=== PATIENT | female | born 1990 | race Caucasian/White ===

== ENCOUNTER 2022-10-04 09:40 | Emergency (ER) | payer BC ==
[2022-10-04] MEDS ORDERED: FAMOTIDINE 20 MG/2 ML VIAL IV ONE (09:54)
[2022-10-04] MEDS ORDERED: NA CHLORIDE 0.9% 1,000 ML ONE (09:54)
[2022-10-04] MEDS ORDERED: DIPHENHYDRAMINE 50 MG/ML VIAL ONE (09:54)
[2022-10-04] MEDS ORDERED: METHYLPREDNISOLONE 125 MG INJ ONE (09:54)
--- NOTE | 2022-10-04 10:40 | EDPHYS ---
Physician Documentation [facility] Name: Magdalena Wong Age: 32 yrs Sex: Female : 1990 Arrival Date: 10/04/2022 Time: 09:40 Bed 13 Private MD: ED Physician Jas Garcia HPI: 10/04 10:21 This 32 yrs old Female presents to ER via Unassigned with complaints of Allergic kb Reaction. 10:21 The patient presents with shortness of breath. Onset: The symptoms/episode kb began/occurred 15 minute(s) ago. Associated signs and symptoms: Pertinent positives: shortness of breath, Pertinent negatives: rash, swelling. Possible causes: bees. At home the patient or guardian has treated the symptoms with nothing. Severity of symptoms: At their worst the symptoms were moderate in the emergency department the symptoms are unchanged. The patient has experienced similar episodes in the past. The patient has not recently seen a physician. 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 Reports shortness of breath. 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 - Social history:: Smoking status: Patient denies any tobacco usage or history of. ROS: 10:17 Constitutional: Negative for fever, chills, and weight loss. kb 10:19 Respiratory: Positive for shortness of breath. kb 10:19 All other systems are negative. Exam: 10:19 Constitutional: This is a well developed, well nourished patient who is awake, alert, kb and in no acute distress. Head/Face: Normocephalic, atraumatic. ENT: Moist Mucous membranes Cardiovascular: Regular rate and rhythm with a normal S1 and S2. No gallops, murmurs, or rubs. No pulse deficits. Respiratory: Respirations even and unlabored. No increased work of breathing. Talking in full sentences Skin: Warm, dry with normal turgor. Normal color. MS/ Extremity: Pulses equal, no cyanosis. Neurovascular intact. Full, normal range of motion. Neuro: Awake and alert, GCS 15, oriented to person, place, time, and situation. Moves all extremities. Normal gait. Vital Signs: 09:52 BP 168 / 87; Pulse 95; Resp 20; Pulse Ox 97% on R/A; iw 10:44 BP 146 / 72; Pulse 84; Resp 18; Pulse Ox 99% on R/A; ko1 MDM: 09:43 Patient medically screened. kb 10:20 Differential diagnosis: anaphylaxis, angioedema, urticaria. Data reviewed: vital signs, kb nurses notes. Counseling: I had a detailed discussion with the patient and/or guardian regarding: the historical points, exam findings, and any diagnostic results supporting the discharge/admit diagnosis, the need for outpatient follow up, a family practitioner, to return to the emergency department if symptoms worsen or persist or if there are any questions or concerns that arise at home. Response to treatment: the patient's symptoms have resolved after treatment, the patient is not short of breath. 10/04 09:44 Order name: IV Start; Complete Time: :44 kb Administered Medications: 09:51 Drug: Famotidine IVP 20 mg Route: IVP; Site: left antecubital; iw 10:45 Follow up: Response: No adverse reaction ko1 09:52 Drug: diphenhydrAMINE IVP 25 mg Route: IVP; Site: left antecubital; iw 10:45 Follow up: Response: No adverse reaction; Marked relief of symptoms ko1 09:52 Drug: MethylPrednisoLONE IVP 125 mg Route: IVP; Site: left antecubital; iw 10:45 Follow up: Response: No adverse reaction; Marked relief of symptoms ko1 10:04 Drug: NS 0.9% IV 1000 ml Route: IV; Rate: 1000 ml; Site: left antecubital; iw 10:45 Follow up: IV Status: Completed infusion; IV Intake: 1000ml ko1 Disposition Summary: 10/04/22 10:39 Discharge Ordered Location: Home kb Condition: Stable kb Diagnosis - Bee allergy status kb Followup: kb - With: Emergency Department - When: As needed - Reason: Worsening of condition Followup: kb - With: Private Physician - When: 2 - 3 days - Reason: Recheck today's complaints, Continuance of care, Re-evaluation by your physician Discharge Instructions: - Discharge Summary Sheet kb - Bee, Wasp, or Hornet Sting, Adult kb - Allergies, Adult, [id number] kb Forms: - Medication Reconciliation Form kb - Thank You Letter kb - Antibiotic Education kb - Prescription Opioid Use kb Prescriptions: - Pepcid 20 mg Oral Tablet - take 1 tablet by ORAL route every 12 hours for 5 days; 10 tablet; Refills: 0, kb Product Selection Permitted - Prednisone 20 mg Oral Tablet - take 1 tablet by ORAL route once daily for 5 days; 5 tablet; Refills: 0, kb Product Selection Permitted Signatures: Nelly Tripp FNP-C FNP-Ckb Williams, Irene, RN RN iw Julieta Rinaldi RN RN ko1
--- NOTE | 2022-10-04 10:40 | ER ---
Nurse's Notes [facility] Name: Magdalena Wong Age: 32 yrs Sex: Female : 1990 Arrival Date: 10/04/2022 Time: 09:40 Bed 13 Private MD: Diagnosis: Bee allergy status Presentation: 10/04 09:52 Chief complaint: Patient states: bee sting X 20-30 min [employer]. iw 09:52 Acuity: URBANO 2 iw 09:52 Method Of Arrival: Wheelchair iw 09:52 Coronavirus screen: At this time, the client does not indicate any symptoms associated iw with coronavirus-19. Ebola Screen: Patient negative for fever greater than or equal to 101.5 degrees Fahrenheit, and additional compatible Ebola Virus Disease symptoms Patient denies exposure to infectious person. Patient denies travel to an Ebola-affected area in the 21 days before illness onset. No symptoms or risks identified at this time. Onset: The symptoms/episode began/occurred just prior to arrival. Anaphylaxis evaluation, chest pain. Initial Sepsis Screen: Does the patient meet any 2 criteria? No. Patient's initial sepsis screen is negative. Does the patient have a suspected source of infection? No. Patient's initial sepsis screen is negative. Risk Assessment: Do you want to hurt yourself or someone else? Patient reports no desire to harm self or others. Onset of symptoms was October 05, 2022. 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 - Social history:: Smoking status: Patient denies any tobacco usage or history of. Screenin:26 [facility] ED Fall Risk Assessment (Adult) History of falling in the last 3 months, ko1 including since admission No falls in past 3 months (0 pts) Confusion or Disorientation No (0 pts) Intoxicated or Sedated No (0 pts) Impaired Gait No (0 pts) Mobility Assist Device Used No (0 pt) Altered Elimination No (0 pt) Score/Fall Risk Level 0 - 2 = Low Risk Oriented to surroundings, Maintained a safe environment, Educated pt \T\ family on fall prevention, incl call for assistance when getting out of bed, Assessed \T\ reinforced patient's understanding of fall precautions, Provided non-skid footwear, Hourly rounding (assess needs \T\ fall precautionary measures) done, Used ambulatory aids as needed (educated on \T\ assisted with), Used gait belt as appropriate. Abuse screen: Denies threats or abuse. Denies injuries from another. Nutritional screening: No deficits noted. Tuberculosis screening: No symptoms or risk factors identified. Assessment: 10:00 General: Appears distressed, uncomfortable, Behavior is calm, cooperative, appropriate ko1 for age. Pain: Denies pain. Neuro: No deficits noted. Cardiovascular: No deficits noted. Respiratory: Airway is patent Respiratory effort is even, Breath sounds are clear bilaterally. GI: No deficits noted. : No deficits noted. EENT: No deficits noted. Derm: No deficits noted. Musculoskeletal: No deficits noted. Vital Signs: 09:52 BP 168 / 87; Pulse 95; Resp 20; Pulse Ox 97% on R/A; iw 10:44 BP 146 / 72; Pulse 84; Resp 18; Pulse Ox 99% on R/A; ko1 ED Course: 09:30 Inserted saline lock: 20 gauge in left antecubital area, using aseptic technique. iw 09:43 Patient arrived in ED. am2 09:43 Nelly Tripp FNP-C [facility]. kb 09:43 Jas Garcia MD is Attending Physician. kb 09:43 Sylwia Garcia, EUGENIA is Primary Nurse. iw 09:52 Triage completed. iw 09:52 Arm band placed on. iw 10:26 No provider procedures requiring assistance completed. ko1 10:26 Patient has correct armband on for positive identification. Bed in low position. Call ko1 light in reach. Side rails up X 1. Pulse ox on. NIBP on. Door closed. Noise minimized. Lights dimmed. Warm blanket given. 10:44 IV discontinued, intact, bleeding controlled, No redness/swelling at site. Pressure ko1 dressing applied. Administered Medications: 09:51 Drug: Famotidine IVP 20 mg Route: IVP; Site: left antecubital; iw 10:45 Follow up: Response: No adverse reaction ko1 09:52 Drug: diphenhydrAMINE IVP 25 mg Route: IVP; Site: left antecubital; iw 10:45 Follow up: Response: No adverse reaction; Marked relief of symptoms ko1 09:52 Drug: MethylPrednisoLONE IVP 125 mg Route: IVP; Site: left antecubital; iw 10:45 Follow up: Response: No adverse reaction; Marked relief of symptoms ko1 10:04 Drug: NS 0.9% IV 1000 ml Route: IV; Rate: 1000 ml; Site: left antecubital; iw 10:45 Follow up: IV Status: Completed infusion; IV Intake: 1000ml ko1 Medication: 10:26 VIS not applicable for this client. ko1 Intake: 10:45 IV: 1000ml; Total: 1000ml. ko1 Outcome: 10:39 Discharge ordered by . kb 11:08 Patient left the ED. iw 11:08 Discharged to home ambulatory. ko1 11:08 Condition: stable 11:08 Discharge instructions given to patient, Instructed on discharge instructions, follow up and referral plans. medication usage, Demonstrated understanding of instructions, follow-up care, medications, Prescriptions given X 2. Signatures: Nelly Tripp, ACQUISITION MARKETING MANAGER-C ACQUISITION MARKETING MANAGER-CkSylwia Abebe, RN EUGENIA Nathalie Medina Kathy, RN RN ko1
[2022-10-04 11:14] VITALS: BP 146/72; O2SAT 99
== END 2022-10-04 11:08 | disposition home or self-care (01) ==
LOC: ER 09:40
DX: R06.02 Shortness of breath (principal); Z91.030 Bee allergy status
CPT/HCPCS: 96361; 96375; 96374; 99284; J1200; J2930; J7030

== ENCOUNTER → 2023-07-13 | Emergency (ER) | payer BC, MEDICARE ==
[~2023-07-13] MED LIST: NA CHLORIDE 0.9% 1,000 ML ONE
[2023-07-13 09:04] LABS: Absolute Lymphocytes (CBC) 0.5 K/uL (0.7-4.9); Basophils % 0.6 % (0-1.3); Hematocrit 36.7 % (36.0-45.0); Lymphocytes % 16.3 % (15.3-44.8); MCV 88.6 fL (80-100); MPV 8.8 fL (7.6-11.3); Platelets 164 thou/uL (152-406); RBC Red Blood Cell Count 4.14 M/uL (3.86-4.86)
[2023-07-13 09:06] LABS: Protime INR 0.97
[2023-07-13 09:16] LABS: ALT/SGPT 33 U/L (13-56); AST/SGOT 17 U/L (15-37); Albumin 3.2 g/dL (3.4-5.0); Albumin/Globulin Ratio 1.1 (1.1-1.8); Alkaline Phosphatase 47 U/L (45-117); Anion Gap 8.5 mEq/L (5.0-15.0); BUN Blood Urea Nitrogen 9 mg/dL (7-18); Bicarbonate 23 mEq/L (21-32); Bilirubin Total 0.2 mg/dL (0.2-1.0); Glomerular Filtration Rate 95 ml/min (=/>90); Glucose Level 107 mg/dL (74-106); Magnesium 2.2 mg/dL (1.6-2.4); NT PRO-BNP 98 pg/mL (<125); Potassium 3.5 mEq/L (3.5-5.1); Sodium Level 140 mEq/L (136-145); Troponin High Sensitivity 3.4 pg/mL (<58.9)
--- NOTE | 2023-07-13 09:16 | RAD REPORT ---
EXAM DESCRIPTION: RAD - Chest Single View - 07/13/2023 9:02 am CLINICAL HISTORY: CHEST PAIN Chest pain. COMPARISON: No comparisons FINDINGS: Portable technique limits examination quality. The lungs are grossly clear. The heart is normal in size. No displaced fractures. IMPRESSION: No acute intrathoracic process suspected.
[2023-07-13 09:18] LABS: Bilirubin Direct < 0.1 mg/dL (0-0.2); Bilirubin Indirect, Calculated ND mg/dL (0.2-0.8)
--- NOTE | 2023-07-13 09:38 | RAD REPORT ---
EXAM DESCRIPTION: US - Abdomen Exam Limited - 07/13/2023 9:32 am CLINICAL HISTORY: ABD PAIN COMPARISON: No comparisons FINDINGS: The gallbladder demonstrates no gallstones. No pericholecystic fluid or gallbladder wall t hickening. The common bile duct is normal measuring 3 mm. The liver demonstrates no findings of intrahepatic biliary dilatation. IMPRESSION: Unremarkable examination.
[2023-07-13 09:50] LABS: Specific Gravity 1.021 (1.005-1.030)
[2023-07-13 10:01] LABS: Barbiturates NEGATIVE (NEGATIVE); Benzodiazepines NEGATIVE (NEGATIVE); Cocaine NEGATIVE (NEGATIVE); METHAMPHETAM NEGATIVE (NEGATIVE); Methadone NEGATIVE (NEGATIVE); Opiates NEGATIVE (NEGATIVE); Phencyclidine NEGATIVE (NEGATIVE); Specific Gravity 1.021 (1.005-1.030); THC Cannibis NEGATIVE (NEGATIVE); Urine Bacteria <20 /HPF (<20); Urine Bilirubin NEGATIVE (Negative); Urine Blood Negative (Negative); Urine Clarity Extremely Turbid (Clear); Urine Color Light-Yellow (Yellow); Urine Glucose NEGATIVE (Negative); Urine Mucus 3+ /HPF (None Seen); Urine Protein TRACE (Negative); Urine RBC <5 /HPF (None Seen); Urine Urobilinogen Normal (Normal)
--- NOTE | 2023-07-13 10:55 | EDPHYS ---
Physician Documentation [facility] Name: Magdalena Wong Age: 32 yrs Sex: Female : 1990 Arrival Date: 07/13/2023 Time: 08:23 Bed 16 Private MD: STEFANIE Physician Sriram Branham HPI: 07/12 10:49 This 32 yrs old Female presents to ER via EMS with complaints of Chest Pain. [facility] 10:49 The patient or guardian reports chest pain that is located primarily in the anterior sandra chest wall, bilaterally. The pain does not radiate. Associated signs and symptoms: Pertinent positives: headache. The chest pain is described as a pressure. Duration: The patient or guardian reports a single episode, that lasted 30 second(s). Modifying factors: The symptoms are alleviated by nothing. the symptoms are aggravated by nothing. Severity of pain: At its worst the pain was mild in the emergency department the pain is unchanged. The patient has not experienced similar symptoms in the past. Historical: - Allergies: 08:36 Iodine; kc6 08:36 Iodinated Contrast Media - IV Dye; kc6 - PMHx: 08:36 brain cancer; kc6 - PSHx: 08:36 brain tumor removal; kc6 - Immunization history:: Adult Immunizations up to date. - Social history:: Smoking status: Patient reports the use of cigarette tobacco products, smokes one-half pack cigarettes per day. ROS: 10:50 Constitutional: Negative for fever, chills, and weight loss, Eyes: Negative for injury, sandra pain, redness, and discharge, ENT: Negative for injury, pain, and discharge, Neck: Negative for injury, pain, and swelling, Respiratory: Negative for shortness of breath, cough, wheezing, and pleuritic chest pain, Abdomen/GI: Negative for abdominal pain, nausea, vomiting, diarrhea, and constipation, Back: Negative for injury and pain, : Negative for injury, bleeding, discharge, and swelling, MS/Extremity: Negative for injury and deformity, Skin: Negative for injury, rash, and discoloration, Neuro: Negative for headache, weakness, numbness, tingling, and seizure, Psych: Negative for depression, anxiety, suicide ideation, homicidal ideation, and hallucinations, Allergy/Immunology: Negative for hives, rash, and allergies, Endocrine: Negative for neck swelling, polydipsia, polyuria, polyphagia, and marked weight changes, Hematologic/Lymphatic: Negative for swollen nodes, abnormal bleeding, and unusual bruising, 10:50 Cardiovascular: Positive for chest pain, of the chest, Exam: 10:50 Constitutional: This is a well developed, well nourished patient who is awake, alert, sandra and in no acute distress. Head/Face: Normocephalic, atraumatic. Eyes: Pupils equal round and reactive to light, extra-ocular motions intact. Lids and lashes normal. Conjunctiva and sclera are non-icteric and not injected. Cornea within normal limits. Periorbital areas with no swelling, redness, or edema. ENT: Nares patent. No nasal discharge, no septal abnormalities noted. Tympanic membranes are normal and external auditory canals are clear. Oropharynx with no redness, swelling, or masses, exudates, or evidence of obstruction, uvula midline. Mucous membranes moist. Neck: Trachea midline, no thyromegaly or masses palpated, and no cervical lymphadenopathy. Supple, full range of motion without nuchal rigidity, or vertebral point tenderness. No Meningismus. Chest/axilla: Normal chest wall appearance and motion. Nontender with no deformity. No lesions are appreciated. Cardiovascular: Regular rate and rhythm with a normal S1 and S2. No gallops, murmurs, or rubs. Normal PMI, no JVD. No pulse deficits. Respiratory: Lungs have equal breath sounds bilaterally, clear to auscultation and percussion. No rales, rhonchi or wheezes noted. No increased work of breathing, no retractions or nasal flaring. Abdomen/GI: Soft, non-tender, with normal bowel sounds. No distension or tympany. No guarding or rebound. No evidence of tenderness throughout. Back: No spinal tenderness. No costovertebral tenderness. Full range of motion. Skin: Warm, dry with normal turgor. Normal color with no rashes, no lesions, and no evidence of cellulitis. MS/ Extremity: Pulses equal, no cyanosis. Neurovascular intact. Full, normal range of motion. Neuro: Awake and alert, GCS 15, oriented to person, place, time, and situation. Cranial nerves II-XII grossly intact. Motor strength 5/5 in all extremities. Sensory grossly intact. Cerebellar exam normal. Normal gait. Psych: Awake, alert, with orientation to person, place and time. Behavior, mood, and affect are within normal limits. 10:50 ECG was reviewed by the Attending Physician. Vital Signs: 08:35 BP 126 / 79; Pulse 73; Resp 16 S; Temp 97.3(O); Pulse Ox 97% on R/A; Weight 80.74 kg kc6 (R); Height 6 ft. 0 in. (R); Pain 10/10; 09:08 BP 122 / 77; Pulse 80; Resp 16 S; Pulse Ox 100% on R/A; Pain 0/10; kc6 09:59 BP 116 / 73; Pulse 68; Resp 16 S; Pulse Ox 99% on R/A; kc6 10:50 BP 118 / 73; Pulse 68; Resp 16 S; Pulse Ox 98% on R/A; kc6 08:35 Body Mass Index 24.14 (80.74 kg, 182.88 cm) kc6 08:35 Pain Scale: Adult kc6 09:08 Pain Scale: Adult kc6 Evans Coma Score: 10:52 Eye Response: spontaneous(4). Motor Response: obeys commands(6). Verbal Response: sandra oriented(5). Total: 15. MDM: 08:29 Patient medically screened. sandra 10:52 Differential diagnosis: cerebral vascular accident, epidural hematoma, herpes zoster, sandra acute pericarditis, Cholelithiasis costochondritis, esophagitis, herpes zoster, hiatal hernia, pancreatitis, pericarditis, pneumonia, pulmonary embolus, thoracic aortic disection, unstable angina, hyponatremia, intracerebral hemorrhage, migraine, subdural hematoma. HEART Score: History: Slightly Suspicious (0), ECG: Normal (0), Age: < or = 45 years (0), Risk Factors: No Risk Factors Known (0), Troponin: < or = 1 x Normal Limit (0), Total Score = 0. MATHEW Risk Score: TOTAL SCORE = 0. Data reviewed: vital signs, nurses notes, lab test result(s), EKG, radiologic studies, plain films. Consideration of Admission/Observation Escalation of care including admission/observation considered. I considered the following discharge prescriptions or medication management in the emergency department Medications were administered in the Emergency Department. See MAR. Independent interpretation of the following test(s) in the Emergency Department EKG: See my EKG interpretation above. Test considered but Not performed: CT: no ct pe. Historians other than the Patient: Spouse/Significant Other: spouse well informed. Care significantly affected by the following chronic conditions: brain cancer. Counseling: I had a detailed discussion with the patient and/or guardian regarding the historical points, exam findings, and any diagnostic results supporting the discharge/admit diagnosis, lab results, radiology results, the need for outpatient follow up, for definitive care, a mortgage loan underwriter, a family practitioner. 07/12 08:30 Order name: Basic Metabolic Panel; Complete Time: 10:46 sandra 07/12 08:30 Order name: CBC with Diff; Complete Time: 10:46 07/12 08:30 Order name: LFT's; Complete Time: 10:46 07/12 08:30 Order name: Magnesium; Complete Time: 10:46 07/12 08:30 Order name: NT PRO-BNP; Complete Time: 10:46 07/12 08:30 Order name: PT-INR; Complete Time: 10:46 07/12 08:30 Order name: Troponin HS; Complete Time: 10:46 sandra 07/12 08:30 Order name: D-Dimer; Complete Time: 10:46 07/12 08:30 Order name: Urinalysis w/ reflexes; Complete Time: 10:46 07/12 08:30 Order name: PREGU; Complete Time: 10:46 07/12 08:30 Order name: UDS; Complete Time: 10:46 07/12 08:30 Order name: XRAY Chest (1 view); Complete Time: 10:46 07/12 08:30 Order name: US Abdomen Limited; Complete Time: 10:46 07/12 08:30 Order name: EKG; Complete Time: 08:31 sandra 07/12 08:30 Order name: Cardiac monitoring; Complete Time: 08:49 sandra 07/12 08:30 Order name: EKG - Nurse/Tech; Complete Time: 08:49 sandra 07/12 08:30 Order name: IV Saline Lock; Complete Time: 08:38 sandra 07/12 08:30 Order name: Labs collected and sent; Complete Time: 08:49 07/12 08:30 Order name: O2 Per Protocol; Complete Time: 08:37 sandra 07/12 08:30 Order name: O2 Sat Monitoring; Complete Time: 08:37 sandra EC:50 Rate is 69 beats/min. Rhythm is regular. QRS Vian is Normal. OH interval is normal. QRS sandra interval is normal. QT interval is normal. No Q waves. T waves are Normal. No ST changes noted. Clinical impression: Normal ECG and No evidence of ischemia. Interpreted by me. Reviewed by me. Administered Medications: 08:59 Drug: NS 0.9% IV 1000 ml IV at 1 bolus Per protocol; 1000 mL bolus Route: IV; Rate: 1 kc6 bolus; Site: right antecubital; 09:31 Follow up: Response: No adverse reaction; IV Status: Completed infusion; IV Intake: kc6 1000ml Disposition Summary: 07/13/23 10:54 Discharge Ordered Notes: Location: Home sandra Problem: new sandra Symptoms: have improved sandra Condition: Stable sandra Diagnosis - Chest pain, unspecified sandra - Headache sandra Followup: sandra - With: Private Physician - When: 2 - 3 days - Reason: Recheck today's complaints, Continuance of care, Re-evaluation by your physician Discharge Instructions: - Discharge Summary Sheet sandra - Nonspecific Chest Pain, Adult sandra - General Headache Without Cause sandra - Nonspecific Chest Pain, Adult, [id number] sandra - General Headache Without Cause, Fdmc-in-[id number] sandra Forms: - Medication Reconciliation Form sandra - Thank You Letter sandra - Antibiotic Education sandra - Prescription Opioid Use sandra - Patient Portal Instructions sandra - Leadership Thank You Letter [facility] Signatures: Dispatcher [employer] Sriram Chavez MD MD cha Campbell, Kaitlyn RN RN kc6
--- NOTE | 2023-07-13 10:55 | ER ---
Nurse's Notes [facility] Name: Magdalena Wong Age: 32 yrs Sex: Female : 1990 Arrival Date: 07/13/2023 Time: 08:23 Bed 16 Private MD: Diagnosis: Chest pain, unspecified;Headache Presentation: 07/12 08:35 Chief complaint: EMS states: left sided chest pain 10/10 with a headache that woke her kc6 up out of her sleep. states she felt like her heart was beating out of her chest and he face was bright red. Coronavirus screen: At this time, the client does not indicate any symptoms associated with coronavirus-19. Ebola Screen: No symptoms or risks identified at this time. Initial Sepsis Screen: Does the patient meet any 2 criteria? No. Patient's initial sepsis screen is negative. Does the patient have a suspected source of infection? No. Patient's initial sepsis screen is negative. Risk Assessment: Do you want to hurt yourself or someone else? Patient reports no desire to harm self or others. Onset of symptoms was July 13, 2023. 08:35 Method Of Arrival: EMS: [facility] kc6 08:35 Acuity: URBANO 3 kc6 Triage Assessment: 08:36 General: Appears in no apparent distress. comfortable, well groomed, well developed, kc6 Behavior is calm, cooperative, appropriate for age. Pain: Complains of pain in left lateral anterior chest Pain currently is 10 out of 10 on a pain scale. EENT: No signs and/or symptoms were reported regarding the EENT system. Neuro: Level of Consciousness is awake, alert, obeys commands, Oriented to person, place, time, situation, Appropriate for age Reports headache. Cardiovascular: Reports chest pain, Heart tones S1 S2 present Capillary refill < 3 seconds. Respiratory: Airway is patent Trachea midline Respiratory effort is even, unlabored, Respiratory pattern is regular, symmetrical. GI: No signs and/or symptoms were reported involving the gastrointestinal system. : No signs and/or symptoms were reported regarding the genitourinary system. Derm: No signs and/or symptoms reported regarding the dermatologic system. Skin is intact, is healthy with good turgor, Skin is pink, warm \T\ dry. Musculoskeletal: No signs and/or symptoms reported regarding the musculoskeletal system. Circulation, motion, and sensation intact. Capillary refill < 3 seconds, Range of motion: intact in all extremities. Historical: - Allergies: 08:36 Iodine; kc6 08:36 Iodinated Contrast Media - IV Dye; kc6 - PMHx: 08:36 brain cancer; kc6 - PSHx: 08:36 brain tumor removal; kc6 - Immunization history:: Adult Immunizations up to date. - Social history:: Smoking status: Patient reports the use of cigarette tobacco products, smokes one-half pack cigarettes per day. Screenin:08 [facility] ED Fall Risk Assessment (Adult) History of falling in the last 3 months, kc6 including since admission No falls in past 3 months (0 pts) Confusion or Disorientation No (0 pts) Intoxicated or Sedated No (0 pts) Impaired Gait No (0 pts) Mobility Assist Device Used No (0 pt) Altered Elimination No (0 pt) Score/Fall Risk Level 0 - 2 = Low Risk. Abuse screen: Denies threats or abuse. Denies injuries from another. Nutritional screening: No deficits noted. Tuberculosis screening: No symptoms or risk factors identified. Assessment: 08:35 Reassessment: please see triage. kc6 09:59 Reassessment: Patient appears in no apparent distress at this time. No changes from [facility] previously documented assessment. Patient and/or family updated on plan of care and expected duration. Pain level reassessed. Patient is alert, oriented x 3, equal unlabored respirations, skin warm/dry/pink. Patient denies pain at this time. Patient states feeling better. Patient states symptoms have improved. 10:50 Reassessment: Patient appears in no apparent distress at this time. No changes from [facility] previously documented assessment. Patient and/or family updated on plan of care and expected duration. Pain level reassessed. Patient is alert, oriented x 3, equal unlabored respirations, skin warm/dry/pink. Vital Signs: 08:35 BP 126 / 79; Pulse 73; Resp 16 S; Temp 97.3(O); Pulse Ox 97% on R/A; Weight 80.74 kg kc6 (R); Height 6 ft. 0 in. (R); Pain 10/10; 09:08 BP 122 / 77; Pulse 80; Resp 16 S; Pulse Ox 100% on R/A; Pain 0/10; kc6 09:59 BP 116 / 73; Pulse 68; Resp 16 S; Pulse Ox 99% on R/A; kc6 10:50 BP 118 / 73; Pulse 68; Resp 16 S; Pulse Ox 98% on R/A; kc6 08:35 Body Mass Index 24.14 (80.74 kg, 182.88 cm) kc6 08:35 Pain Scale: Adult kc6 09:08 Pain Scale: Adult kc6 Israel Coma Score: 10:52 Eye Response: spontaneous(4). Motor Response: obeys commands(6). Verbal Response: sandra oriented(5). Total: 15. ED Course: 08:28 Patient arrived in ED. sandra 08:29 Sriram Branham MD is Attending Physician. sandra 08:34 Guerline Davis RN is Primary Nurse. kc6 08:36 Triage completed. kc6 08:36 Arm band placed on. kc6 08:37 Maintain EMS IV. Dressing intact. Good blood return noted. Site clean \T\ dry. Gauge \T\ [place] 6 site: 18G RAC. Patient maintains SpO2 saturation greater than 95% on room air. 09:04 XRAY Chest (1 view) In Process Unspecified. EDMS 09:08 Patient has correct armband on for positive identification. Placed in gown. Bed in low kc6 position. Call light in reach. Side rails up X2. Adult w/ patient. Client placed on continuous cardiac and pulse oximetry monitoring. NIBP monitoring applied. equipment monitor phototypesetting on. 09:33 US Abdomen Limited In Process Unspecified. EDMS 11:01 No provider procedures requiring assistance completed. IV discontinued, intact, kc6 bleeding controlled, No redness/swelling at site. Pressure dressing applied. Administered Medications: 08:59 Drug: NS 0.9% IV 1000 ml IV at 1 bolus Per protocol; 1000 mL bolus Route: IV; Rate: 1 kc6 bolus; Site: right antecubital; 09:31 Follow up: Response: No adverse reaction; IV Status: Completed infusion; IV Intake: kc6 1000ml Medication: 11:01 VIS not applicable for this client. kc6 Intake: 09:31 IV: 1000ml; Total: 1000ml. kc6 Outcome: 10:54 Discharge ordered by . [facility] 11:01 Discharged to home ambulatory, with significant other, kc6 11:01 Condition: improved 11:01 Discharge instructions given to patient, significant other, Instructed on discharge instructions, follow up and referral plans. Demonstrated understanding of instructions, follow-up care, 11:01 Patient left the ED. kc6 Signatures: Dispatcher [employer] EDSriram Queen MD MD cha Campbell, Kaitlyn, RN RN kc6 Corrections: (The following items were deleted from the chart) 09:09 08:35 Chief complaint: EMS states: left sided chest pain 02/13 with a headache that kc6 started this morning kc6
[2023-07-13 11:31] VITALS: BP 118/73; TEMP 97.3; O2SAT 98
== END ==
LOC: ER 08:23
DX: R07.89 Other chest pain (principal); R51.9 Headache, unspecified; F17.210 Nicotine dependence, cigarettes, uncomplicated; Z85.841 Personal history of malignant neoplasm of brain; Z91.041 Radiographic dye allergy status
CPT/HCPCS: 93005; 85025; 81001; 80048; 36415; 83735; 81025; 85610; 85379; 80076; 84484; 83880; 80307; 71045; 76705; 96360; 99285; J7030

== ENCOUNTER 2023-07-24 06:45 | Inpatient (IN) | payer BC ==
[2023-07-24] MEDS ORDERED: ONDANSETRON 4 MG/2 ML VIAL ONE (07:04)
[2023-07-24] MEDS ORDERED: NA CHLORIDE 0.9% 1,000 ML ONE ×3 (07:05→11:56)
[2023-07-24] MEDS ORDERED: HYDROMORPHONE HCL 1 MG/ML INJ ONE (07:05)
[2023-07-24 07:27] LABS: Absolute Eosinophils 0.2 K/uL (0-0.5); Absolute Lymphocytes (CBC) 1.2 K/uL (0.7-4.9); Absolute Monocytes 0.4 K/uL (0.1-1.3); Absolute Neutrophil 2.1 K/uL (1.8-8.0); Basophils % 0.4 % (0-1.3); Eosinophils % 4.9 % (0-4.4); Hematocrit 40.8 % (36.0-45.0); Hemoglobin 14.5 g/dL (12.0-15.0); Lymphocytes % 29.4 % (15.3-44.8); MCH 31.8 pg (27.0-35.0); MCHC 35.6 g/dL (32.0-36.0); MCV 89.5 fL (80-100); MPV 8.7 fL (7.6-11.3); Monocytes % 11.4 % (3.3-12.3); Neutrophils % 53.9 % (41.7-73.7); Nucleated Red Blood Cells % 0.3 % (0-0); Platelets 175 thou/uL (152-406); RBC Red Blood Cell Count 4.56 M/uL (3.86-4.86); Red Cell Distribution Width 14.2 % (12.1-15.2)
[2023-07-24] MEDS ORDERED: FENTANYL CITR 100 MCG/2 ML ONE (07:28)
[2023-07-24 07:41] LABS: Albumin 3.7 g/dL (3.4-5.0); Albumin/Globulin Ratio 1.1 (1.1-1.8); Anion Gap 10.3 mEq/L (5.0-15.0); Bilirubin Total 0.2 mg/dL (0.2-1.0); Globulin 3.3 g/dL (2.3-3.5); Potassium 3.3 mEq/L (3.5-5.1)
--- NOTE | 2023-07-24 08:19 | RAD REPORT ---
EXAM DESCRIPTION: CT - Abdomen Pelvis Wo Contrast - 07/24/2023 8:01 am CLINICAL HISTORY: ABD PAIN COMPARISON: No comparisons TECHNIQUE: Thin cut axial CT imaging of the abdomen and pelvis was performed without IV contrast. Mu ltiplanar reformats were generated and reviewed. All CT scans are performed using dose optimization technique as appropriate and may include automated exposure control or mA/KV adjustment according to patient size. FINDINGS: No suspicious findings in the lung bases. The liver, spleen, adrenal glands, and pancreas show no suspicious findings. Gallbladder and biliary tree are also without suspicious finding. Symmetric renal contour, without suspicious parenchymal findings within limits of noncontrast techniq ue. No evidence of hydroureteronephrosis. 2 mm right renal interpolar calculus. Short segments of fluid-filled and mildly dilated small bowel loops, in the right lower quadrant, wit h gradual transition to more distal small bowel. No bowel wall thickening. No free air, free fluid or inflammatory stranding. No hernia, mass or bulky lymphadenopathy. The urinary bladder is without sig nificant finding. No suspicious bony findings. IMPRESSION: Short segments of mildly distended fluid filled right lower quadrant small bowel, could reflect mild ileus or enteritis. Nonobstructing right renal interpolar calculus.
[2023-07-24] MEDS ORDERED: DICYCLOMINE HCL 20 MG/2 ML AMP IM ONE (08:23)
--- NOTE | 2023-07-24 08:30 | RAD REPORT ---
EXAM DESCRIPTION: CT - Head Brain Wo Cont - 07/24/2023 8:01 am CLINICAL HISTORY: glioblastoma s/p resection, vomiting COMPARISON: Head Brain Wo Cont dated 01/29/2023; Brain W/Wo Cont dated 02/28/2023 TECHNIQUE: Noncontrast head CT images were obtained without IV contrast. Multiplanar reformats were generated and reviewed. All CT scans are performed using dose optimization technique as appropriate and may include automated exposure control or mA/KV adjustment according to patient size. FINDINGS: Sequelae of right parietal craniotomy with a fluid filled surgical tract extending to the right centrum semiovale and ependyma of the body of the right lateral ventricle, where previously the tract was more effaced towards the vertex on the prior MRI. . Adjacent mild white matter edema, also new. No intracranial hemorrhage, mass, or edema. Midline structures are unremarkable. Ventricular caliber is otherwise stable. Morales-white matter differentiation elsewhere is preserved, without evidence of acute infarct. No abnor mal extra-axial fluid collections. Mastoid air cells and visualized portions of the paranasal sinuses are clear. No acute bony findings. IMPRESSION: Sequelae of right parietal craniotomy and resection of a mass centered on the right cent rum semiovale. Since the most recent MRI, there is progressive fluid filling of the surgical tract, now extending to the vertex and with adjacent mild white matter edema. This is of uncertain clinical significance, th is may relate to time interval changes of gliosis versus interval increase in intracranial pressure, although ventricular caliber remains stable. No evidence of an acute intracranial process.
--- NOTE | 2023-07-24 09:02 | RAD REPORT ---
EXAM DESCRIPTION: US - Transvaginal Study Probe - 07/24/2023 8:32 am CLINICAL HISTORY: pelvic pain, rule out torsion COMPARISON: No comparisons TECHNIQUE: Sonographic grayscale and color flow images of the pelvis were obtained. FINDINGS: The uterus is normal in size, and morphology, with retroverted appearance. No focal myomet rial abnormality. The uterus measures 8.0 cm in length. Few nabothian cysts noted. The endometrial stripe measures 7 mm, normal. Both ovaries are normal in size, shape and echotexture. The right ovary measures 2.6 x 1.8 x 1.9 cm. The left ovary measures 1.3 x 1.5 x 1.1 cm. Bilateral ovarian cysts, largest on the right measures 1.6 cm and on the left measures 9 mm. No suspicious adnexal masses. Normal Doppler blood flow was demonstrated to both ovaries. No significant pelvic ascites. IMPRESSION: Retroverted uterus. No evidence of ovarian torsion.Small bilateral ovarian cysts, likely physiologic.
--- NOTE | 2023-07-24 09:42 | ER ---
Nurse's Notes [facility] Name: Magdalena Wong Age: 32 yrs Sex: Female : 1990 Arrival Date: 07/24/2023 Time: 06:45 Bed 13 Private MD: Diagnosis: Ileus, unspecified;Lower abdominal pain, unspecified;Hypokalemia Presentation: 07/23 06:50 Chief complaint: Patient states: Severe Abdominal pain that started 30 mins prior to jw7 arrival. 06:50 Coronavirus screen: At this time, the client does not indicate any symptoms associated jw7 with coronavirus-19. Ebola Screen: No symptoms or risks identified at this time. Initial Sepsis Screen: Does the patient meet any 2 criteria? RR > 20 per min. HR > 90 bpm. Yes Does the patient have a suspected source of infection? No. Patient's initial sepsis screen is negative. Risk Assessment: Do you want to hurt yourself or someone else? Patient reports no desire to harm self or others. Onset of symptoms was July 24, 2023. 06:50 Method Of Arrival: Wheelchair jw7 06:50 Acuity: URBANO 3 jw7 Triage Assessment: 06:50 General: Appears in no apparent distress. uncomfortable, Behavior is cooperative, jw7 anxious, restless. Pain: Complains of pain in right lower quadrant and left lower quadrant Pain does not radiate. Pain currently is 10 out of 10 on a pain scale. Quality of pain is described as burning, sharp, stabbing, stinging, Pain began suddenly, Is continuous. EENT: No deficits noted. No signs and/or symptoms were reported regarding the EENT system. Neuro: Level of Consciousness is awake, alert, obeys commands, Oriented to person, place, time, situation. Cardiovascular: Heart tones S1 S2 present Capillary refill < 3 seconds Clubbing of nail beds is absent JVD is absent Patient's skin is warm and dry. Respiratory: Airway is patent Trachea midline Respiratory effort is even, unlabored, Respiratory pattern is regular, symmetrical, Breath sounds are clear bilaterally. GI: Abdomen is flat, non-distended, Reports lower abdominal pain. : No deficits noted. No signs and/or symptoms were reported regarding the genitourinary system. Derm: Skin is intact, is healthy with good turgor, Skin is dry, Skin is normal, Skin temperature is warm. Musculoskeletal: Circulation, motion, and sensation intact. Range of motion: intact in all extremities. Historical: - Allergies: 06:50 Iodinated Contrast Media - IV Dye; jw7 06:50 Iodine; jw7 - PMHx: 06:50 brain cancer; jw7 - PSHx: 06:50 brain tumor removal; jw7 - Immunization history:: Adult Immunizations up to date. - Social history:: Smoking status: Patient denies any tobacco usage or history of. - Family history:: not pertinent. - Hospitalizations: : No recent hospitalization is reported. Screenin:07 [facility] ED Fall Risk Assessment (Adult) History of falling in the last 3 months, jw7 including since admission No falls in past 3 months (0 pts) Confusion or Disorientation No (0 pts) Intoxicated or Sedated No (0 pts) Impaired Gait No (0 pts) Mobility Assist Device Used No (0 pt) Altered Elimination No (0 pt) Score/Fall Risk Level 0 - 2 = Low Risk Oriented to surroundings, Maintained a safe environment, Educated pt \T\ family on fall prevention, incl call for assistance when getting out of bed. Abuse screen: Denies threats or abuse. Denies injuries from another. Nutritional screening: No deficits noted. Tuberculosis screening: No symptoms or risk factors identified. Assessment: 07:14 General: Appears distressed, uncomfortable, well groomed, well developed, Behavior is kc6 crying. Pain: Complains of pain in abdomen and left lower quadrant and right lower quadrant Pain currently is 10 out of 10 on a pain scale. Quality of pain is described as sharp, stabbing, Pain began suddenly, Is continuous, Noted to be crying, guarding, moaning, resistant to movement. Neuro: Level of Consciousness is awake, alert, obeys commands, Oriented to person, place, time, situation, Appropriate for age. Cardiovascular: Capillary refill < 3 seconds. Respiratory: Airway is patent Trachea midline Respiratory effort is even, unlabored, Respiratory pattern is regular, symmetrical. GI: Abdomen is flat, non-distended, Pt is actively vomiting bile, Bowel sounds present X 4 quads. Abd is soft X 4 quads Abdomen is tender to palpation X 4 quads. Reports nausea, vomiting, Patient currently denies diarrhea. : No signs and/or symptoms were reported regarding the genitourinary system. EENT: No signs and/or symptoms were reported regarding the EENT system. Derm: No signs and/or symptoms reported regarding the dermatologic system. Skin is intact, is healthy with good turgor, Skin is dry, Skin is red, Skin temperature is warm. Musculoskeletal: No signs and/or symptoms reported regarding the musculoskeletal system. Circulation, motion, and sensation intact. Capillary refill < 3 seconds, Range of motion: intact in all extremities. 07:30 Reassessment: pt appears to have had a syncopal episode while laying down in the bed. kc6 pt with eyes closed, respirations even and unlabored. unconscious for approximately 1min. responsive to verbal stimulus. VSS. Dr. Haywood notified. 08:15 Reassessment: Patient appears in no apparent distress at this time. No changes from kc6 previously documented assessment. Patient and/or family updated on plan of care and expected duration. Pain level reassessed. Patient is alert, oriented x 3, equal unlabored respirations, skin warm/dry/pink. Patient states symptoms have not improved. 09:15 Reassessment: Patient appears in no apparent distress at this time. No changes from kc6 previously documented assessment. Patient and/or family updated on plan of care and expected duration. Pain level reassessed. Patient is alert, oriented x 3, equal unlabored respirations, skin warm/dry/pink. Patient denies pain at this time. Patient states feeling better. Patient states symptoms have improved. 10:15 Reassessment: Patient appears in no apparent distress at this time. No changes from kc6 previously documented assessment. Patient and/or family updated on plan of care and expected duration. Pain level reassessed. Patient is alert, oriented x 3, equal unlabored respirations, skin warm/dry/pink. Vital Signs: 06:50 BP 165 / 111; Pulse 101; Resp 23 S; Temp 97.9(O); Pulse Ox 97% on R/A; Weight 83.91 kg; jw7 Height 6 ft. 0 in. ; Pain 10/10; 07:15 BP 116 / 77; Pulse 77; Resp 20 S; Pulse Ox 97% on R/A; kc6 07:30 BP 126 / 75; Pulse 75; Resp 16 S; Pulse Ox 98% on R/A; kc6 08:32 BP 93 / 56; Pulse 69; Resp 16 S; Pulse Ox 99% on R/A; kc6 10:35 BP 109 / 66; Pulse 70; Resp 16 S; Pulse Ox 99% on R/A; kc6 06:50 Body Mass Index 25.09 (83.91 kg, 182.88 cm) jw7 06:50 Pain Scale: Adult [facility] ED Course: 06:48 Patient arrived in ED. kmf 06:50 Arm band placed on. jw7 06:59 Antony Haywood MD is Attending Physician. rn 07:03 Guerline Davis RN is Primary Nurse. kc6 07:05 Triage completed. jw7 07:07 Patient has correct armband on for positive identification. Bed in low position. Call [facility] light in reach. Provided Education on: Use of call light. 07:07 Initial lab(s) drawn, by ED staff, sent to lab. Inserted saline lock: 20 gauge in right [facility] antecubital area, using aseptic technique. Blood collected. 08:03 CT Abd/Pelvis - Without Contrast In Process Unspecified. EDMS 08:03 CT Head Brain wo Cont In Process Unspecified. EDMS 08:34 Transvaginal Study Probe In Process Unspecified. EDMS 09:41 Arnel Pearson MD is Hospitalizing Provider. rn 10:30 No provider procedures requiring assistance completed. Patient admitted, IV remains in kc6 place. Administered Medications: 07:13 Drug: NS 0.9% IV 1000 ml IV at 1 bolus Per protocol; 1000 mL bolus Route: IV; Rate: 1 kc6 bolus; Site: right antecubital; 07:13 Drug: Ondansetron IVP 4 mg IVP once; over 2 minutes Route: IVP; Site: right antecubital;kc6 07:49 Follow up: Response: No adverse reaction; Nausea is decreased; Vomiting decreased kc6 07:13 Drug: HYDROmorphone IVP 1 mg IVP once Route: IVP; Site: right antecubital; kc6 07:49 Follow up: Response: No adverse reaction; Pain is unchanged, physician notified; RASS: kc6 Restless (+1) 07:34 Drug: fentaNYL (PF) IVP 50 mcg IVP once Route: IVP; Site: right antecubital; kc6 08:20 Follow up: Response: No adverse reaction; Pain is unchanged, physician notified; RASS: kc6 Alert and Calm (0) 08:26 Drug: Dicyclomine IM 20 mg IM once Route: IM; Site: right deltoid; kc6 10:35 Follow up: Response: No adverse reaction; Pain is decreased kc6 10:20 Drug: Potassium Chloride IV 20 mEq IV at calculated rate once; administer over 1-2 kc6 hours Route: IV; Rate: calculated rate; Site: right antecubital; 10:20 Drug: NS 0.9% IV 1000 ml IV at 1000 ml once Route: IV; Rate: 1000 ml; Site: right kc6 antecubital; Medication: 10:30 VIS not applicable for this client. kc6 Outcome: 09:41 Decision to Hospitalize by Provider. rn 11:30 Admitted to ER Hold. Please see [facility] for further documentation. kc6 11:30 Condition: improved 11:30 Instructed on the need for admit, 17:04 Patient left the ED. kc6 Signatures: Dispatcher [employer] EDMS Antony Haywood MD MD rn Waits, Jodi, RN RN jw7 Guerline Davsi RN RN kc6 Veronica Drake km Corrections: (The following items were deleted from the chart) 07:14 06:50 BP 165 / 11; Pulse 101bpm; Resp 23bpm; Spontaneous; Pulse Ox 97% RA; Temp 97.9F jw7 Oral; 83.91 kg; Height 6 ft. 0 in.; BMI: 25.0; Pain 10/10, Adult; jw7
--- NOTE | 2023-07-24 09:42 | EDPHYS ---
Physician Documentation [facility] Name: Magdalena Wong Age: 32 yrs Sex: Female : 1990 Arrival Date: 07/24/2023 Time: 06:45 Bed 13 Private MD: ED Physician Antony Haywood HPI: 07/23 07:06 This 32 yrs old Female presents to ER via Wheelchair with complaints of Abdominal Pain. rn 07:06 The patient presents with abdominal pain in the lower abdomen. Onset: The rn symptoms/episode began/occurred this morning. The symptoms do not radiate. Associated signs and symptoms: Pertinent positives: nausea and vomiting, diarrhea, Pertinent negatives: blood in stools, fever. The symptoms are described as sharp, stabbing. Modifying factors: The symptoms are alleviated by nothing, the symptoms are aggravated by nothing. Severity of pain: At its worst the pain was moderate in the emergency department the pain is unchanged. The patient has not experienced similar symptoms in the past. The patient has not recently seen a physician. Pt reports sudden onset lower abd pain that began this AM, lower abdomen, sharp/stabbing. Has history of glioblastoma, getting chemo and radiation. No hx of abd pain like this in past. No hx of kidney stones or ovarian pathology. No fever. . Historical: - Allergies: 06:50 Iodinated Contrast Media - IV Dye; jw7 06:50 Iodine; jw7 - PMHx: 06:50 brain cancer; jw7 - PSHx: 06:50 brain tumor removal; jw7 - Immunization history:: Adult Immunizations up to date. - Social history:: Smoking status: Patient denies any tobacco usage or history of. - Family history:: not pertinent. - Hospitalizations: : No recent hospitalization is reported. ROS: 07:06 Constitutional: Negative for fever, chills, and weight loss, Neck: Negative for injury, rn pain, and swelling, Cardiovascular: Negative for chest pain, palpitations, and edema, Respiratory: Negative for shortness of breath, cough, wheezing, and pleuritic chest pain, Abdomen/GI: + lower abd pain and vomiting/diarrhea Back: Negative for injury and pain, : Negative for injury, bleeding, discharge, and swelling, MS/Extremity: Negative for injury and deformity, Skin: Negative for injury, rash, and discoloration, Neuro: Negative for headache, weakness, numbness, tingling, and seizure, Exam: 07:06 Constitutional: This is a well developed, well nourished patient who is awake, alert, rn appears uncomortable, vomiting in emesis bag. Head/Face: Normocephalic, atraumatic. Cardiovascular: Regular rate and rhythm. No pulse deficits. Respiratory: Hyperventilating, able to slow down breathing with coaching Abdomen/GI: soft, + tender bilateral lower abd without rebound. no masses Skin: Warm, dry MS/ Extremity: Pulses equal, no cyanosis Neuro: Awake and alert, GCS 15. Moves all 4 extremities with equal strength. Vital Signs: 06:50 BP 165 / 111; Pulse 101; Resp 23 S; Temp 97.9(O); Pulse Ox 97% on R/A; Weight 83.91 kg; jw7 Height 6 ft. 0 in. ; Pain 10/10; 07:15 BP 116 / 77; Pulse 77; Resp 20 S; Pulse Ox 97% on R/A; kc6 07:30 BP 126 / 75; Pulse 75; Resp 16 S; Pulse Ox 98% on R/A; kc6 08:32 BP 93 / 56; Pulse 69; Resp 16 S; Pulse Ox 99% on R/A; kc6 10:35 BP 109 / 66; Pulse 70; Resp 16 S; Pulse Ox 99% on R/A; kc6 06:50 Body Mass Index 25.09 (83.91 kg, 182.88 cm) [facility] 06:50 Pain Scale: Adult [facility] MDM: 06:59 Patient medically screened. rn 07:40 ED course: Patient declines UPT, reports not sexually active for more than 3 months and rn undergoing chemo, patient and reports 0% chance she is . . 09:40 Differential diagnosis: appendicitis, bowel obstruction, diverticulitis, non-specific rn abd pain, Ovarian Torsion, Ureterolithiasis, urinary tract infection. Data reviewed: vital signs, nurses notes, lab test result(s), radiologic studies, CT scan, and as a result, I will admit patient. Consideration of Admission/Observation Patient was admitted/placed on observation. Escalation of care including admission/observation considered. Care significantly affected by the following chronic conditions: Brain cancer undergoing chemotherapy. Counseling: I had a detailed discussion with the patient and/or guardian regarding the historical points, exam findings, and any diagnostic results supporting the discharge/admit diagnosis, lab results, radiology results, the need for further work-up and treatment in the hospital. Response to treatment: the patient's symptoms have mildly improved after treatment, and as a result, I will admit patient. 07/23 07:03 Order name: CBC with Diff; Complete Time: 07:28 rn 07/23 07:03 Order name: CMP; Complete Time: 08:21 rn 07/23 07:03 Order name: Lipase; Complete Time: 08:21 rn 07/23 07:03 Order name: Test, Urine rn 07/23 07:03 Order name: Urinalysis w/ reflexes rn 07/23 07:03 Order name: CT Abd/Pelvis - Without Contrast; Complete Time: 08:21 rn 07/23 07:10 Order name: CT Head Brain wo Cont; Complete Time: 09:10 rn 07/23 07:16 Order name: US Pelvis Complete 07/23 07:19 Order name: Transvaginal Study Probe; Complete Time: 09:10 EDAR 07/23 10:33 Order name: Abdomen 1 View (KUB) [facility] [place] 07/23 10:33 Order name: Abdomen 1 View (KUB) [facility] [place] 07/23 10:33 Order name: Abdomen 1 View (KUB) [facility] [place] 07/23 07:03 Order name: IV Saline Lock; Complete Time: 07:03 rn 07/23 07:03 Order name: Labs collected and sent; Complete Time: 07:03 rn Administered Medications: 07:13 Drug: NS 0.9% IV 1000 ml IV at 1 bolus Per protocol; 1000 mL bolus Route: IV; Rate: 1 kc6 bolus; Site: right antecubital; 07:13 Drug: Ondansetron IVP 4 mg IVP once; over 2 minutes Route: IVP; Site: right antecubital;kc6 07:49 Follow up: Response: No adverse reaction; Nausea is decreased; Vomiting decreased kc6 07:13 Drug: HYDROmorphone IVP 1 mg IVP once Route: IVP; Site: right antecubital; kc6 07:49 Follow up: Response: No adverse reaction; Pain is unchanged, physician notified; RASS: kc6 Restless (+1) 07:34 Drug: fentaNYL (PF) IVP 50 mcg IVP once Route: IVP; Site: right antecubital; kc6 08:20 Follow up: Response: No adverse reaction; Pain is unchanged, physician notified; RASS: kc6 Alert and Calm (0) 08:26 Drug: Dicyclomine IM 20 mg IM once Route: IM; Site: right deltoid; kc6 10:35 Follow up: Response: No adverse reaction; Pain is decreased kc6 10:20 Drug: Potassium Chloride IV 20 mEq IV at calculated rate once; administer over 1-2 kc6 hours Route: IV; Rate: calculated rate; Site: right antecubital; 10:20 Drug: NS 0.9% IV 1000 ml IV at 1000 ml once Route: IV; Rate: 1000 ml; Site: right kc6 antecubital; Disposition Summary: 07/24/23 09:41 Hospitalization Ordered Notes: Hospitalization Status: Observation rn Provider: Arnel Pearson rn Condition: Stable rn Problem: new rn Symptoms: have improved rn Bed/Room Type: Standard rn Location: Telemetry/MedSurg (observation)(07/24/23 15:54) ja Room Assignment: 408(07/24/23 15:54) ja Diagnosis - Ileus, unspecified rn - Lower abdominal pain, unspecified rn - Hypokalemia rn Forms: - Medication Reconciliation Form rn - SBAR form rn - Leadership Thank You Letter rn Signatures: Dispatcher [employer] Antony Farrell MD MD rn Aguilar, Jose, RN RN ja1 Sydney Meyer RN RN jw7 Guerline Davis RN RN kc6 Karmen Méndez, RN RN kb3 Corrections: (The following items were deleted from the chart) 07:08 07:06 Constitutional: Negative for fever, chills, and weight loss, Cardiovascular: rn Negative for chest pain, palpitations, and edema, Respiratory: Negative for shortness of breath, cough, wheezing, and pleuritic chest pain, Abdomen/GI: + lower abd pain and vomiting/diarrhea Back: Negative for injury and pain, : Negative for injury, bleeding, discharge, and swelling, MS/Extremity: Negative for injury and deformity, Skin: Negative for injury, rash, and discoloration, Neuro: Negative for headache, weakness, numbness, tingling, and seizure, rn 11:09 09:41 Telemetry/MedSurg (observation) rn kb3 09:41 rn kb3 15:54 11: [facility] kb3 ja1 1554 11: [facility]- kb3 ja1
[2023-07-24] MEDS ORDERED: KCL 20 MEQ/100 mL IVPB 100 ML IV ONE (10:12)
--- NOTE | 2023-07-24 10:17 | P.HP ---
Certification for Inpatient Patient History Date of Service: 07/24/23 History of Present Illness: 32-year-old female with a past medical history of brain tumor, brain cancer, presents with abdominal pain. She reports lower quadrant abdominal pain that does not radiate, symptoms are constant, reports associated nausea vomiting diarrhea, she denies chest pain, shortness of breath blood in stools, fever, plan to admit for ileus, lower abdominal pain, hypokalemia. With surgery to consult. N.p.o. treated with IV fluids, Dilaudid for pain, Zofran, fentanyl, Bentyl IM, laboratory evaluation hypokalemia potassium 3.3 acute on chronic kidney injury unknown baseline creatinine 1.04 BUN 10, elevated lipase 95, CT of the abdomen pelvis IMPRESSION: Short segments of mildly distended fluid filled right lower quadrant small bowel, could reflect mild ileus or enteritis.Nonobstructing right renal interpolar calculus, transvaginal percent, IMPRESSION: Retroverted uterus.No evidence of ovarian torsion.Small bilateral ovarian cysts, likely physiologic. CT of the head IMPRESSION: Sequelae of right parietal craniotomy and resection of a mass centered on the right centrum semiovale.Since the most recent MRI, there is progressive fluid filling of the surgical tract, now extending to the vertex and with adjacent mild white matter edema. This is of uncertain clinical significance, this may relate to time interval changes of gliosis versus interval increase in intracranial pressure, although ventricular caliber remains stable.No evidence of an acute intracranial process <Laura Menezes - Last Filed: 07/24/23 10:25> Date of Service: 07/24/23 <Arnel Pearson - Last Filed: 07/24/23 14:34> Review of Systems Per HPI <Laura Menezes - Last Filed: 07/24/23 10:25> Physical Examination - Physical Exam General: Alert, In no apparent distress, Oriented x3 HEENT: Atraumatic, Normocephalic Neck: Supple, JVD not distended Respiratory: Clear to auscultation bilaterally, Normal air movement Cardiovascular: Normal pulses, Regular rate/rhythm Gastrointestinal: Hypoactive, Other (Nausea vomiting), Tenderness Musculoskeletal: No clubbing, No swelling - Studies Laboratory Data (last 24 hrs) 07/24/23 07/24/23 06:58 06:58 WBC 4.00 L Hgb 14.5 Hct 40.8 Plt Count 175 Sodium 139 Potassium 3.3 L BUN 10 Creatinine 1.04 H Glucose 128 H Total Bilirubin 0.2 AST 17 ALT 27 Alkaline Phosphatase 58 Lipase 95 H <Laura Menezes - Last Filed: 07/24/23 10:25> - Studies Laboratory Data (last 24 hrs) 07/24/23 07/24/23 06:58 06:58 WBC 4.00 L Hgb 14.5 Hct 40.8 Plt Count 175 Sodium 139 Potassium 3.3 L BUN 10 Creatinine 1.04 H Glucose 128 H Total Bilirubin 0.2 AST 17 ALT 27 Alkaline Phosphatase 58 Lipase 95 H <Arnel Pearson Berkley - Last Filed: 07/24/23 14:34> Assessment and Plan - Plan Assessment plan Abdominal pain, nausea vomiting Ileus Elevated lipase N.p.o., surgery consult, IV fluids, as needed analgesics, antiemetics She reports lower quadrant abdominal pain that does not radiate, symptoms are constant, reports associated nausea vomiting diarrhea, With surgery to consult. N.p.o. treated with IV fluids, Dilaudid for pain, Zofran, fentanyl, Bentyl IM, elevated lipase 95, CT of the abdomen pelvis IMPRESSION: Short segments of mildly distended fluid filled right lower quadrant small bowel, could reflect mild ileus or enteritis.Nonobstructing right renal interpolar calculus, transvaginal percent, IMPRESSION: Retroverted uterus.No evidence of ovarian torsion.Small bilateral ovarian cysts, likely physiologic history of brain tumor brain cancer CT of the head IMPRESSION: Sequelae of right parietal craniotomy and resection of a mass centered on the right centrum semiovale.Since the most recent MRI, there is progressive fluid filling of the surgical tract, now extending to the vertex and with adjacent mild white matter edema. This is of uncertain clinical significance, this may relate to time interval changes of gliosis versus interval increase in intracranial pressure, although ventricular caliber remains stable.No evidence of an acute intracranial process hypokalemia Trend electrolytes replace as needed potassium 3.3 acute on chronic kidney injury unknown baseline creatinine 1.04 BUN 10, Full code Diet n.p.o. DVT SCDs Disposition Home independent Discharge Plan: Home - Advance Directives Does patient have a Living Will: No Does patient have a Durable POA for Healthcare: No - Code Status/Comfort Care Code Status: Full Code Critical Care: No Time Spent Managing Pts Care (In Minutes): 55 <Laura Menezes - Last Filed: 07/24/23 10:25> Physician Review Additional Text: Pt seen and examined. I agree with the note by the DIGITAL BUSINESS ANALYST. Pt is a 32 yo male with past medical history of brain cancer who presents with abd pain. It was associated with nausea, vomiting and diarrhea. Nothing makes it worse or better. On admission,, lab studies show wbc 4, hgb 14.5, K 3.3, cr 1.[address] abd shows evidence of ileus. At bedside, pt isin NAD A/P: Ileus: Will keep pt NPO. continue IVF. Consulted Gen surgeon. Lipase is 95. Hypokalemia: K is 3.3. Will replete. Hx of brain tumor: noted. <Arnel Pearson - Last Filed: 07/24/23 14:34>
[2023-07-24] MEDS ORDERED: HYDROMORPHONE HCL 0.5 MG/0.5 ML INJ IV PRN (10:30)
[2023-07-24] MEDS ORDERED: METOCLOPRAMIDE 10 MG/2mL INJ IV PRN (10:30)
[2023-07-24] MEDS: NA CHLORIDE 0.9% 1,000 ML IV SCH (11:46)
[2023-07-24] MEDS ORDERED: ONDANSETRON 4 MG/2 ML VIAL IV PRN (11:46)
[2023-07-24 13:54] VITALS: BMI 24.7
--- NOTE | 2023-07-24 17:02 | P.DS ---
Admission Date: 07/24/23 Discharge Date: 07/24/23 Disposition: ROUTINE DISCHARGE Brief History of Present Illness: 32-year-old female with a past medical history of brain tumor, brain cancer, presents with abdominal pain. She reports lower quadrant abdominal pain that does not radiate, symptoms are constant, reports associated nausea vomiting diarrhea, she denies chest pain, shortness of breath blood in stools, fever, plan to admit for ileus, lower abdominal pain, hypokalemia. With surgery to consult. N.p.o. treated with IV fluids, Dilaudid for pain, Zofran, fentanyl, Bentyl IM, laboratory evaluation hypokalemia potassium 3.3 acute on chronic kidney injury unknown baseline creatinine 1.04 BUN 10, elevated lipase 95, CT of the abdomen pelvis IMPRESSION: Short segments of mildly distended fluid filled right lower quadrant small bowel, could reflect mild ileus or enteritis .Nonobstructing right renal interpolar calculus, transvaginal percent, IMPRESSION: Retroverted uterus.No evidence of ovarian torsion.Small bilateral ovarian cysts, likely physiologic. CT of the head IMPRESSION: Sequelae of right parietal craniotomy and resection of a mass centered on the right centrum semiovale.Since the most recent MRI, there is progressive fluid filling of the surgical tract, now extending to the vertex and with adjacent mild white matter edema. This is of uncertain clinical significance, this may relate to time interval changes of gliosis versus interval increase in intracranial pressure, although ventricular caliber remains stable.No evidence of an acute intracranial process - Physical Exam General: Alert, In no apparent distress, Oriented x3 HEENT: Atraumatic, Normocephalic Neck: Supple, JVD not distended Respiratory: Clear to auscultation bilaterally, Normal air movement Cardiovascular: Normal pulses, Regular rate/rhythm Gastrointestinal: Hypoactive, Other (Nausea vomiting), Tenderness Musculoskeletal: No clubbing, No swelling Hospital Course: 32 year-old female patient presented with abdominal pain. Was noted to have possible ileus. Condition improved with as needed analgesics, as needed antiemetics. Surgery was ordered to evaluated patient. Patient tolerating diet, stable for discharge to home with follow-up appointment with primary care physician. Follow-up with oncology tomorrow PROBLEM: Ileus-advance to liquid diet Abdominal pain Nausea vomiting On chemo Continue home medicines as previously prescribed GOAL: Clear understanding of disease process INSTRUCTIONS: Physician Discharge Instructions: -Follow-up with PCP in 1 to 2 weeks -Please call if any questions regarding hospital stay -Please call nursing station at [phone] if any nursing or medication questions -Return to the emergency room if symptoms worsen Diet: ADA, low sodium Activity: Fall precautions Vital Signs/Physical Exam: Temp Pulse Resp BP Pulse Ox 56 18 101/63 98 07/24/23 12:00 07/24/23 12:00 07/24/23 12:00 07/24/23 12:00 Laboratory Data at Discharge: WBC 4.00 thou/uL (4.3-10.9) L 07/24/23 06:58 Hgb 14.5 g/dL (12.0-15.0) 07/24/23 06:58 Hct 40.8 % (36.0-45.0) 07/24/23 06:58 Plt Count 175 thou/uL (152-406) 07/24/23 06:58 Sodium 139 mEq/L (136-145) 07/24/23 06:58 Potassium 3.3 mEq/L (3.5-5.1) L 07/24/23 06:58 BUN 10 mg/dL (7-18) 07/24/23 06:58 Creatinine 1.04 mg/dL (0.55-1.02) H 07/24/23 06:58 Glucose 128 mg/dL (74-106) H 07/24/23 06:58 Total Bilirubin 0.2 mg/dL (0.2-1.0) 07/24/23 06:58 AST 17 U/L (15-37) 07/24/23 06:58 ALT 27 U/L (13-56) 07/24/23 06:58 Alkaline Phosphatase 58 U/L (45-117) 07/24/23 06:58 Lipase 95 U/L (13-75) H 07/24/23 06:58 Followup: Jarod Claros MD [Primary Care Provider] - Time spent managing pt's care (in minutes): 55
--- NOTE | 2023-07-24 17:04 | P.DS ---
Admission Date: 07/24/23 Discharge Date: 07/24/23 Disposition: AMA-LEFT AGAINST MEDICAL ADVIC Discharge Condition: FAIR Brief History of Present Illness: 32-year-old female with a past medical history of brain tumor, brain cancer, presents with abdominal pain. She reports lower quadrant abdominal pain that does not radiate, symptoms are constant, reports associated nausea vomiting diarrhea, she denies chest pain, shortness of breath blood in stools, fever, plan to admit for ileus, lower abdominal pain, hypokalemia. With surgery to consult. N.p.o. treated with IV fluids, Dilaudid for pain, Zofran, fentanyl, Bentyl IM, laboratory evaluation hypokalemia potassium 3.3 acute on chronic kidney injury unknown baseline creatinine 1.04 BUN 10, elevated lipase 95, CT of the abdomen pelvis IMPRESSION: Short segments of mildly distended fluid filled right lower quadrant small bowel, could reflect mild ileus or enteritis.Nonobstructing right renal interpolar calculus, transvaginal percent, IMPRESSION: Retroverted uterus.No evidence of ovarian torsion.Small bilateral ovarian cysts, likely physiologic. CT of the head IMPRESSION: Sequelae of right parietal craniotomy and resection of a mass centered on the right centrum semiovale.Since the most recent MRI, there is progressive fluid filling of the surgical tract, now extending to the vertex and with adjacent mild white matter edema. This is of uncertain clinical significance, this may relate to time interval changes of gliosis versus interval increase in intracranial pressure, although ventricular caliber remains stable.No evidence of an acute intracranial process Hospital Course: Pt is a 32 yo male with past medical history of brain cancer who presents with abd pain. It was associated with nausea, vomiting and diarrhea. Nothing made it better. On admission, lab studies showed wbc 4, hgb 14.5, K 3.3, cr 1.[address] abd showed evidence of ileus. Pt was admitted for ileus. She reported passing gas. Pt had to leave [place] on 07/24/23 in order to meet up her appointment in the morning of 07/24/20. Vital Signs/Physical Exam: Temp Pulse Resp BP Pulse Ox 56 18 101/63 98 07/24/23 12:00 07/24/23 12:00 07/24/23 12:00 07/24/23 12:00 Laboratory Data at Discharge: WBC 4.00 thou/uL (4.3-10.9) L 07/24/23 06:58 Hgb 14.5 g/dL (12.0-15.0) 07/24/23 06:58 Hct 40.8 % (36.0-45.0) 07/24/23 06:58 Plt Count 175 thou/uL (152-406) 07/24/23 06:58 Sodium 139 mEq/L (136-145) 07/24/23 06:58 Potassium 3.3 mEq/L (3.5-5.1) L 07/24/23 06:58 BUN 10 mg/dL (7-18) 07/24/23 06:58 Creatinine 1.04 mg/dL (0.55-1.02) H 07/24/23 06:58 Glucose 128 mg/dL (74-106) H 07/24/23 06:58 Total Bilirubin 0.2 mg/dL (0.2-1.0) 07/24/23 06:58 AST 17 U/L (15-37) 07/24/23 06:58 ALT 27 U/L (13-56) 07/24/23 06:58 Alkaline Phosphatase 58 U/L (45-117) 07/24/23 06:58 Lipase 95 U/L (13-75) H 07/24/23 06:58 Followup: Jarod Claros MD [Primary Care Provider] -
[2023-07-24 17:18] VITALS: BP 100/61; TEMP 98.7
[2023-07-24 19:03] VITALS: O2SAT 99
== END 2023-07-24 16:57 | disposition left against medical advice (07) | DRG 389 ==
LOC: ER 06:45 → ERHOLD 10:26
PROVIDERS: ADMIT Hospitalist; ATTEND Hospitalist
DX: K56.7 Ileus, unspecified (principal); C71.9 Malignant neoplasm of brain, unspecified; N17.9 Acute kidney failure, unspecified; E87.6 Hypokalemia; N83.202 Unspecified ovarian cyst, left side; N83.201 Unspecified ovarian cyst, right side; Z91.041 Radiographic dye allergy status; Z91.048 Other nonmedicinal substance allergy status; Z53.29 Procedure and treatment not carried out because of patient's decision for other reasons
CPT/HCPCS: 36415; 70450; 74176; 76830; 80053; 83690; 85025; 96372; 96374; 96375; 99285; J0500; J1170; J2405; J3010; J3480; J7030